=== PATIENT | female | born 1975 | race Caucasian/White ===

== ENCOUNTER 2017-01-17 01:05 | Emergency (ER) | payer SELFPAY ==
[~2017-01-17] VITALS: Ht 157.5 cm; Wt 54.4 kg
[2017-01-17 01:20] VITALS: BP 112/67
--- NOTE | 2017-01-17 03:23 | NUR ---
TO ER BED 7
--- NOTE | 2017-01-17 03:44 | NUR ---
41Y/F PATIENT PRESENTS TO ED WITH C/O GENERALIZED RASH X 1 DYA . PT STATES BEDBUG AT HOUSE, NOFEVER . DENIES N/V/D; SKIN IS PINK/WARM/DRY, GENERALIZED RASH NOTED; AAOX4 WITH EVEN AND STEADY GAIT; LUNGS CLEAR BL; HR EVEN AND REGULAR; PT DENIES ANY FEVER, CP, SOB, OR COUGH AT THIS TIME; PATIENT STATES PAIN OF 8/10 AT THIS TIME; VSS; PATIENT POSITIONED FOR COMFORT; HOB ELEVATED; BEDRAILS UP X2; BED DOWN. ER MD MADE AWARE OF PT STATUS.
[2017-01-17 04:54] VITALS: BP 111/62
--- NOTE | 2017-01-17 04:55 | NUR ---
Patient discharged with v/s stable. Written and verbal after care instructions given and explained. Patient alert, oriented and verbalized understanding of instructions. Ambulatory with to car. All questions addressed prior to discharge. ID band removed. Patient advised to follow up with PMD. Rx of albenza 200mg, permethrin 5%, hydrocortisone 2.5%, benadryl 25mg given. Patient educated on indication of medication including possible reaction and side effects. Opportunity to ask questions provided and answered.
== END 2017-01-17 04:54 | disposition home or self-care (01) ==
LOC: MED 01:05
CPT/HCPCS: 99283